=== PATIENT | female | born 1995 | race Two or more races ===

== ENCOUNTER 2022-03-04 08:00 | Outpatient (CLI) | payer OTHER | END 2022-03-04 08:05 | disposition home or self-care (01) | LOC: PPH VACUNA 08:00 | PROVIDERS: ATTEND Emergency Medicine Pediatric Emergency Medicine | DX: Z23 Encounter for immunization (principal) ==

== ENCOUNTER 2022-10-19 07:21 | Outpatient (CLI) | payer OTHER | END 2022-10-19 07:26 | disposition home or self-care (01) | LOC: LAB 07:21 | DX: Z00.00 Encounter for general adult medical examination without abnormal findings (principal) ==

== ENCOUNTER 2022-12-08 07:04 | Outpatient (CLI) | payer OTHER | END 2022-12-08 07:11 | disposition home or self-care (01) | LOC: LAB 07:04 | PROVIDERS: ATTEND Internal Medicine Nephrology | DX: N39.0 Urinary tract infection, site not specified (principal); E78.5 Hyperlipidemia, unspecified; E03.9 Hypothyroidism, unspecified; D64.89 Other specified anemias; M25.50 Pain in unspecified joint ==

== ENCOUNTER 2023-03-12 08:30 | Outpatient (CLI) | payer OTHER | END 2023-03-12 08:40 | disposition home or self-care (01) | LOC: PPH VACUNA 08:30 | PROVIDERS: ATTEND Emergency Medicine Pediatric Emergency Medicine | DX: Z23 Encounter for immunization (principal) | CPT/HCPCS: 90686; G0008 ==

== ENCOUNTER 2023-10-01 13:25 | Emergency (ER) | payer OTHER ==
[~2023-10-01] VITALS: Ht 157.5 cm; Wt 61.2 kg
[2023-10-01] MEDS ORDERED: VITAMIN D-40010 MCG PO (14:45)
[2023-10-01] MEDS ORDERED: HYDROXYCHLOROQ200 MG PO (14:46)
[2023-10-01] MEDS ORDERED: KETOROLAC TROMETHAMINE 60 MG VIAL IM ONE (16:45)
[2023-10-01 17:10] LABS: HEMATOCRIT 38.2 % (36.0-45.00); HEMOGLOBIN 13.2 g/dL (12.0-15.00); MEAN CELL VOLUME 93.8 fL (80.00-100.00); MEAN CORPUSCULAR HEMOGLOBIN 32.4 pg (27.00-32.0); MEAN CORPUSCULAR HGB CONC 34.6 g/dl (32.0-36.0); PLATELET COUNT 219 K/uL (150-450); RED BLOOD COUNT 4.08 M/uL (4.00-6.00); RED CELL DISTRIBUTION WIDTH 13.1 % (11.5-14.5)
[2023-10-01 17:32] LABS: URINE BACTERIA 27.7 uL (0.0-1933); URINE RBC 23.9 uL (0.0-20.8); URINE WBC 5.5 uL (0.0-23.2)
[2023-10-01 17:34] LABS: URINE APPEARANCE CLEAR; URINE COLOR YELLOW; URINE GLUCOSE NEGATIVE (NEGATIVE)
[2023-10-01 17:35] LABS: URINE BILIRRUBIN NEGATIVE (NEGATIVE); URINE BLOOD TRACE; URINE PROTEIN TRACE (NEGATIVE)
[2023-10-01 17:36] LABS: URINE LEUKOCYTE NEGATIVE; URINE NITRATE NEGATIVE
[2023-10-01 17:52] LABS: CALCIUM 8.6 mg/dL (8.5-10.1); CREATININE SERUM 0.88 mg/dL (0.55-1.02); GFR 77.08; POTASSIUM 3.89 mEq/L (3.5-5.1)
[2023-10-01] MEDS ORDERED: DICLOFENAC SODI75 MG PO (19:57)
== END 2023-10-01 20:01 | disposition home or self-care (01) ==
LOC: ER 13:26
PROVIDERS: General Practice
DX: R10.2 Pelvic and perineal pain (principal)

== ENCOUNTER 2023-10-03 18:28 | Emergency (ER) | payer OTHER ==
[~2023-10-03] VITALS: Ht 157.5 cm; Wt 61.2 kg
[~2023-10-03 18:28] MED LIST: DICLOFENAC SODI75 MG PO; HYDROXYCHLOROQ200 MG PO; VITAMIN D-40010 MCG PO
[2023-10-03] MEDS ORDERED: 0.9 % SODIUM CHLORIDE 1,000 ML IV SCH (19:15)
[2023-10-03] MEDS ORDERED: KETOROLAC TROMETHAMINE 30 MG VIAL IV ONE (19:15)
[2023-10-03 19:35] LABS: HEMATOCRIT 38.1 % (36.0-45.00); HEMOGLOBIN 13.2 g/dL (12.0-15.00); MEAN CELL VOLUME 91.1 fL (80.00-100.00); MEAN CORPUSCULAR HEMOGLOBIN 31.5 pg (27.00-32.0); MEAN CORPUSCULAR HGB CONC 34.6 g/dl (32.0-36.0); PLATELET COUNT 217 K/uL (150-450); RED BLOOD COUNT 4.18 M/uL (4.00-6.00); RED CELL DISTRIBUTION WIDTH 13.1 % (11.5-14.5)
[2023-10-03 20:07] LABS: CALCIUM 9.2 mg/dL (8.5-10.1); CREATININE SERUM 0.99 mg/dL (0.55-1.02); GFR 67.28; POTASSIUM 4.18 mEq/L (3.5-5.1)
[2023-10-03 21:33] LABS: URINE APPEARANCE Clear; URINE BILIRRUBIN Negative (NEGATIVE); URINE BLOOD Negative; URINE COLOR Yellow; URINE GLUCOSE Negative (NEGATIVE); URINE LEUKOCYTE Negative; URINE NITRATE Negative; URINE PROTEIN Negative (NEGATIVE); URINE UROBILINOGEN 0.2 E.U./dl
[2023-10-03 21:35] LABS: URINE BACTERIA 46.5 uL (0.0-1933); URINE EPITHELIAL CELLS 2.9 uL (0.0-38.8); URINE WBC 12.3 uL (0.0-23.2)
[2023-10-03 21:37] LABS: URINE RBC 1.4 uL (0.0-20.8)
== END 2023-10-04 00:01 | disposition home or self-care (01) ==
LOC: ER 18:29
PROVIDERS: Emergency Medicine
DX: R10.2 Pelvic and perineal pain (principal)
CPT/HCPCS: 36415; 74177; Q9965